=== PATIENT | male | born 1980 | race Caucasian/White ===

== ENCOUNTER 2019-06-12 07:27 | Day surgery (SDC) | payer BC ==
[~2019-06-12 07:27] MED LIST: Lactated Ringers 1,000 ML IV SCH; Scopolamine 1.5 MG Transdermal Patch TOP PRN; Sodium Chloride 0.9% 10 ML Syringe FLUSH PRN
[2019-06-12] MEDS ORDERED: fentaNYL 100 MCG/2 ML SDV ONE (08:30)
[2019-06-12] MEDS ORDERED: Propofol 200 MG/20 ML SDV ONE ×2 (08:30→10:02)
[2019-06-12] MEDS ORDERED: Midazolam 1 MG/ML 2 ML SDV ONE (08:30)
[2019-06-12] MEDS ORDERED: Lidocaine 1% with EPINEPHrine 1:100,000 20 ML MDV ONE (08:36)
[2019-06-12] MEDS ORDERED: Lidocaine 1% with EPINEPHrine 1:100,000 30 ML MDV INJECT ONE ×2 (10:00)
--- NOTE | 2019-06-12 12:33 | OR ---
PREOPERATIVE DIAGNOSIS: Right upper extremity lipoma. POSTOPERATIVE DIAGNOSIS: Right upper extremity lipoma. PROCEDURE: Right upper extremity lipoma excision. SET UP INSPECTOR: Tech. ANESTHESIA: Local MAC. PROPHYLAXIS: SCDs. FINDINGS: A 4 x 5 cm lipoma overriding the lateral biceps, brachiocephalic vein overlying the lipoma. DETAILS OF PROCEDURE: After obtaining informed consent, the patient was brought to the operating room and placed under monitored anesthesia care. Time-out was called and local anesthetic was infiltrated to the skin and surrounding soft tissues. A 5 cm incision was made longitudinally with a scalpel and carried down through the soft tissue with electrocautery. We encountered a 5 mm vein which was retracted out of the way with 2 vessel loops proximally and distally. Two small branches of the vein were suture ligated with 3-0 silk sutures. We were then able to gain adequate exposure to excise the firm well-circumscribed lipoma up off the fascia of the muscle. The lipoma did lie between the biceps and the brachioradialis muscle. The area was irrigated and then closed with multiple 3-0 Vicryl sutures and a running 4-0 Vicryl suture and Dermabond. The patient tolerated the procedure well. CJM: 06/12/2019 10:42:43 MODL: 06/12/2019 12:20:42 /[id number]
== END 2019-06-12 12:05 | disposition home or self-care (01) ==
LOC: VM.SDS 07:27
PROVIDERS: ATTEND Surgery
DX: D17.79 Benign lipomatous neoplasm of other sites (principal); E78.5 Hyperlipidemia, unspecified; E66.9 Obesity, unspecified; Z68.35 Body mass index [BMI] 35.0-35.9, adult; Z79.899 Other long term (current) drug therapy
CPT/HCPCS: 24076; A9270; J2250; J2704; J3010; J7120